=== PATIENT | male | born 1955 | race Native Hawaiian/Other Pacific Islander ===

== ENCOUNTER 2018-07-24 07:37 | Outpatient (CLI) | payer OTHER | END 2018-07-24 07:38 | disposition home or self-care (01) | LOC: C.LAB 07:37 | DX: R94.31 Abnormal electrocardiogram [ECG] [EKG] (principal); R21 Rash and other nonspecific skin eruption; E78.01 Familial hypercholesterolemia; E55.9 Vitamin D deficiency, unspecified; Z12.5 Encounter for screening for malignant neoplasm of prostate ==